=== PATIENT | female | born 1985 | race Caucasian/White ===

== ENCOUNTER 2017-02-18 21:20 | Emergency (ER) | payer BC ==
[2017-02-18] MEDS ORDERED: Morphine INJ* 4 MG/ML 1 ML SYRINGE IV ONE (22:01)
[2017-02-18] MEDS ORDERED: NS 0.9% 1000 ML* 1,000 ML IV ONE (22:01)
[2017-02-18] MEDS ORDERED: Ondansetron INJ* 2 MG/ML VIAL IV ONE (22:01)
[2017-02-18 22:26] LABS: Hematocrit 39 % (35-47); Hemoglobin 13.2 g/dl (12.0-16.0); Mean Corpuscular HGB Conc 34 g/dl (31-36); Mean Corpuscular Hemoglobin 29 pg (27-31); Mean Corpuscular Volume 88 fL (80-97); Mean Platelet Volume 9 um3 (7.4-10.4); Red Cell Distribution Width 13 % (10.5-15); White Blood Count 6.6 10^3/ul (3.5-10.8)
[2017-02-18 22:41] LABS: ALT 12 U/L (7-52); AST 14 U/L (13-39); Albumin 3.8 g/dL (3.2-5.2); Alkaline Phosphatase 42 U/L (34-104); Anion Gap 7 mmol/L (2-11); BUN/Creatinine Ratio 24.3 (8-20); Blood Urea Nitrogen 18 mg/dL (6-24); CO2 Carbon Dioxide 24 mmol/L (22-32); Calcium 8.3 mg/dL (8.6-10.3); Chloride 106 mmol/L (101-111); EGFR African American 119.3 (>60); EGFR Non-African American 92.8 (>60); Globulin 2.4 g/dL (2-4); Glucose 123 mg/dL (70-100); Lipase 20 U/L (11.0-82.0); Potassium 3.3 mmol/L (3.5-5.0); Sodium 137 mmol/L (133-145); Total Protein 6.2 g/dL (6.4-8.9)
[2017-02-18 23:19] LABS: Urine Bacteria Absent (Absent); Urine Bilirubin Negative (Negative); Urine Glucose Negative (Negative); Urine Nitrite Negative (Negative)
[2017-02-18] MEDS ORDERED: Iohexol 300* (CONTRAST) 10 ML SDV IV ONE (23:36)
[2017-02-18] MEDS ORDERED: HYDROmorphone* 1 MG/ML 1 ML SYR IV SLOW PU ONE (23:57)
[2017-02-19] MEDS ORDERED: Potassium Chlor TAB* 20 MEQ TAB.ER PO ONE (01:58)
[2017-02-19] MEDS ORDERED: oxyCODONE/Acetamin 5/325 MG* TAB PO ONE (02:03)
[2017-02-19] MEDS ORDERED: Omeprazole CAP* 20 MG PO ONE (02:04)
[2017-02-19] MEDS ORDERED: Ondansetron INJ* 2 MG/ML VIAL IV ONE (02:46)
[2017-02-19] MEDS ORDERED: Ondansetron INJ* 2 MG/ML VIAL ONE (02:47)
[2017-02-19 03:16] VITALS: BP 113/74
--- NOTE | 2017-02-19 04:51 | ED ---
Esther Angel Rebecca, scribed for Dereje Santos on 02/18/17 at 2204 . Syncope/Near Syncope - HPI Summary HPI Summary: Pt is a 31 y/o F BIBA who presents to ED s/p 2 syncopal episodes. Pt reports syncopal episodes occurred at approximately 2000 tonight after onset of abdominal pain. Positive LOC. Sx aggravated by nothing, alleviated by spontaneous resolution. Abdominal pain began at 1999, is located in the lower abdomen and is currently moderate, ranked 6/10. Additionally c/o nausea, citing one episode of nearly vomiting. Denies V/D. Pt reports no chance of . - History Of Current Complaint Chief Complaint: EDSyncope Time Seen by Provider: 02/18/17 21:38 Hx Obtained From: Patient Onset/Duration: Resolved Context: Loss Of Consciousness Activity At Onset: Other - Abdominal pain had recently began Aggravating Factor(s): Nothing Alleviating Factor(s): Spontaneous Resolution Associated Signs And Symptoms: Other - Abdominal pain and nausea - Allergies/Home Medications Allergies/Adverse Reactions: Allergies Allergy/AdvReac Type Severity Reaction Status Date / Time Amoxicillin Allergy Unknown Unknown Verified 02/18/17 21:44 Reaction Details Erythromycin Allergy Unknown Unknown Verified 02/18/17 21:44 Reaction Details Penicillins [PCN] Allergy Unknown Unknown Verified 02/18/17 21:44 Reaction Details Sulfa Antibiotics Allergy Unknown Unknown Verified 02/18/17 21:44 Reaction Details Sulfamethoxazole Allergy Unknown Unknown Verified 02/18/17 21:44 w/Trimethoprim Reaction [From Bactrim] Details PMH/Surg Hx/FS Hx/Imm Hx History: Denies: Hx Kidney Stones Musculoskeletal History: Denies: Hx Scoliosis EENT History: Reports: Hx Seasonal Allergies Infectious Disease History: No Infectious Disease History: Denies: Traveled Outside the [place] in Last 30 Days - Family History Known Family History: Positive: Cardiac Disease, Hypertension, Diabetes - Social History Alcohol Use: Rare Substance Use Type: Reports: None Smoking Status (MU): Never Smoked Tobacco Review of Systems Positive: Abdominal Pain - Lower, Nausea. Negative: Vomiting, Diarrhea Positive: Syncope - S/p 2 syncopal episodes with positive LOC All Other Systems Reviewed And Are Negative: Yes Physical Exam - Summary Physical Exam Summary: Appearance: Well appearing, no pain distress Skin: warm, dry, reflects adequate perfusion Head/face: normal Eyes: EOMI, CARLOS ENT: normal Neck: supple, nontender Respiratory: CTA, breath sounds present Cardiovascular: RRR, pulses symmetrical Abdomen: tenderness in the RLQ and LLQ, soft Bowel: present Musculoskeletal: normal, strength/ROM intact Neuro: normal, sensory motor intact, A&Ox3 Triage Information Reviewed: Yes Vital Signs On Initial Exam: Initial Vitals Temp Pulse Resp BP Pulse Ox 98.3 F 77 17 133/88 100 02/18/17 21:42 02/18/17 21:42 02/18/17 21:42 02/18/17 21:42 02/18/17 21:42 Vital Signs Reviewed: Yes Diagnostics - Vital Signs Vital Signs Temp Pulse Resp BP Pulse Ox 02/18/17 21:42 98.3 F 77 17 133/88 100 - Laboratory Result Diagrams: 02/18/17 22:18 02/18/17 22:18 Lab Statement: Any lab studies that have been ordered have been reviewed, and results considered in the medical decision making process. - CT CT Abd/Pel CT Interpretation: Positive (See Comments) - No gallstones. No evidence of renal calculi or obstructive uropathy. Normal appendix. Bowel wall thickening involving the distal transverse colon, splenic flexure, descending colon, and sigmoid colon that is suggestive of colitis. Clinical correlation is advised. No evience of intestinal obstruction, perforation, free fluid, or an intra- abdominal or pelvic abscess. ED physician reviewed this radiology report and agrees. CT Interpretation Completed By: Radiologist - Ultrasound No standard instances Ultrasound Interpretation: No Acute Changes - Abdomen US: Normal exam. ED physician reviewed this radiology report and agrees. Ultrasound Interpretation Completed By: Radiologist - EKG 2159 Cardiac Rate: NL - 76 bpm EKG Rhythm: Sinus Rhythm EKG Interpretation: No acute changes Re-Evaluation - Re-Evaluation First Eval Re-Evaluation Time: 01:36 Comment: Discussed CT results. Second Eval Re-Evaluation Time: 02:02 Comment: Discussed results and D/C plan with the pt. Course/Dx Assessment/Plan: Pt is a 31 y/o F BIBA who presents to ED s/p 2 syncopal episodes. Pt reports syncopal episodes occurred at approximately 2000 tonight after onset of abdominal pain. Positive LOC. Sx aggravated by nothing, alleviated by spontaneous resolution. Abdominal pain began at 2000, is located in the lower abdomen and is currently moderate, ranked 6/10. Additionally c/o nausea, citing one episode of nearly vomiting. Denies V/D. Pt reports no chance of . CT Abd/Pel reveals "No gallstones. No evidence of renal calculi or obstructive uropathy. Normal appendix. Bowel wall thickening involving the distal transverse colon, splenic flexure, descending colon, and sigmoid colon that is suggestive of colitis. Clinical correlation is advised. No evience of intestinal obstruction, perforation, free fluid, or an intra-abdominal or pelvic abscess." EKG is sinus rhythm with no acute changes. Abdomen US reveals no acute findings. In the ED course, pt was administered Dilaudid, Morphine, Potassium Chloride, Zofran and Percocet. She will be D/C to home with Dx of syncope, abdominal pain and colitis with Rx for Protonix and Percocet and a follow up with GI. She understands and agrees. Elevated BP noted and advised to f/u with PCP. - Diagnoses Provider Diagnoses: Colitis, Abdominal pain, Syncope Discharge - Discharge Plan Condition: Stable Disposition: HOME Prescriptions: Pantoprazole TAB (NF) [Protonix TAB (NF)] 40 mg PO DAILY #30 tab Pantoprazole TAB (NF) [Protonix TAB (NF)] 40 mg PO DAILY #30 tab oxyCODONE/Acetamin 5/325 MG* [Percocet 5/325 TAB*] 1 tab PO Q8H PRN #15 tab MDD 3 PRN Reason: Pain Patient Education Materials: Colitis (ED), Acute Abdominal Pain (ED), Syncope ( ED) Referrals: James Palmer MD [Medical Doctor] - 3 Days The documentation as recorded by the Esther sorto Rebecca accurately reflects the service I personally performed and the decisions made by , Dereje Santos.
--- NOTE | 2017-02-19 07:44 | RAD ---
INDICATION: Right upper quadrant pain. COMPARISON: Comparison is made with a CT of the abdomen and pelvis of the same date. TECHNIQUE: Multiple real-time images of the right upper quadrant were obtained. FINDINGS: The gallbladder appear normal. No gallbladder wall thickening or pericholecystic fluid is present. No intra or extrahepatic ductal distention is present. The common bile duct measured 0.3 cm in diameter. The liver is normal in size without significant focal abnormality. The pancreas is partially obscured by overlying bowel gas. The right kidney is normal in size without evidence for hydronephrosis. IMPRESSION: NEGATIVE EXAM.
--- NOTE | 2017-02-19 07:58 | RAD ---
INDICATION: Abdominal pain. COMPARISON: Comparison is made with a right upper quadrant ultrasound of the same date and a CT of the abdomen and pelvis from May 22, 2003. TECHNIQUE: A CT scan of the abdomen and pelvis was performed with intravenous and without oral contrast following intravenous injection of 91 ml of Omnipaque 300 nonionic contrast. Contiguous axial sections were obtained from the lung bases through the symphysis pubis. Images were reconstructed in the coronal and sagittal planes. FINDINGS: The lung bases are clear. No pleural effusion is present. The liver and spleen are within normal limits in size without significant focal abnormality. No calcified gallstones are seen. The pancreas appears to be within normal limits in size. The kidneys and adrenal glands are normal in size. No hydronephrosis is seen. No significant focal renal abnormality is seen. The aorta is normal in caliber and demonstrates homogeneous contrast opacification. No significant enlarged retroperitoneal lymph nodes are seen. The stomach is distended with food debris. The small bowel and colon are nondistended. The appendix is within normal limits. There is suggestion of mild bowel wall thickening in the distal transverse and descending colon versus normal variation. There is no evidence for diverticulitis. The uterus is anteverted and normal in size. No free intraperitoneal air or fluid is seen. No significant focal osseous abnormality is seen. IMPRESSION: THERE IS SUGGESTION OF MILD BOWEL WALL THICKENING IN THE DISTAL TRANSVERSE AND DESCENDING COLON POSSIBLY INDICATING COLITIS VERSUS NORMAL VARIATION, RECOMMEND CLINICAL CORRELATION.
== END 2017-02-19 03:16 | disposition home or self-care (01) ==
LOC: ED 21:20
DX: R55 Syncope and collapse (principal); K52.9 Noninfective gastroenteritis and colitis, unspecified; R10.9 Unspecified abdominal pain
CPT/HCPCS: 36415; 74177; 76705; 80053; 81003; 81015; 83690; 84484; 84702; 85025; 85610; 85730; 93005; 96374; 96375; 99284; A9270-GY; J1170; J2270; J2405; Q9967

== ENCOUNTER 2017-06-26 17:39 | Emergency (ER) | payer BC ==
[2017-06-26 17:57] VITALS: BP 138/99
--- NOTE | 2017-06-26 19:06 | UC ---
Skin Complaint HPI - HPI Summary HPI Summary: 31 yo WF c/o dog bite by a neighbor's mike mix on her left upper thigh a few hrs ago while walking her dog. Last tetanus was about 2 years ago. The dog was Not on a leash but presumed to be vaccinated as the neighbor had it for many years.. Denies f/c - History of Current Complaint Chief Complaint: UCBiteInjury Time Seen by Provider: 06/26/17 18:54 Stated Complaint: DOG BITE Hx Obtained From: Patient Hx Last Menstrual Period: 2 weeks ago Onset/Duration: Sudden Onset Skin Exposure Onset/Duration: Hours Ago Onset Severity: Moderate Aggravating Factor(s): Nothing Alleviating Factor(s): Nothing - Allergy/Home Medications Allergies/Adverse Reactions: Allergies Allergy/AdvReac Type Severity Reaction Status Date / Time Amoxicillin Allergy Unknown Unknown Verified 06/26/17 17:56 Reaction Details Erythromycin Allergy Unknown Unknown Verified 06/26/17 17:56 Reaction Details Penicillins [PCN] Allergy Unknown Unknown Verified 06/26/17 17:56 Reaction Details Sulfa Antibiotics Allergy Unknown Unknown Verified 06/26/17 17:56 Reaction Details Sulfamethoxazole Allergy Unknown Unknown Verified 06/26/17 17:56 w/Trimethoprim Reaction [From Bactrim] Details Home Medications: Home Medications Ciprofloxacin-Ciprofloxacin Hc [Ciprofloxacin ER 500 mg] 500 mg PO BID 06/26/17 [History Confirmed 06/26/17] Dicyclomine CAP* [Bentyl CAP*] 20 mg PO BID PRN 06/26/17 [History Confirmed 09/08] Review of Systems Constitutional: Negative Skin: Other - Dog bite on on right upper thigh Eyes: Negative ENT: Negative Respiratory: Negative Cardiovascular: Negative Gastrointestinal: Negative Genitourinary: Negative Motor: Negative Neurovascular: Negative Musculoskeletal: Negative Neurological: Negative Psychological: Negative All Other Systems Reviewed And Are Negative: Yes PMH/Surg Hx/FS Hx/Imm Hx - Surgical History Surgical History: Yes Surgery Procedure, Year, and Place: WISDOM TEETH - Family History Known Family History: Positive: Cardiac Disease, Hypertension, Diabetes - Social History Alcohol Use: Occasionally Substance Use Type: None Smoking Status (MU): Never Smoked Tobacco - Immunization History Most Recent Influenza Vaccination: UTD Most Recent Tetanus Shot: UTD Physical Exam Triage Information Reviewed: Yes Appearance: Well-Appearing Vital Signs: Initial Vital Signs Temp 37.2 C 06/26/17 17:48 Pulse 97 06/26/17 17:48 Resp 20 06/26/17 17:48 BP 138/99 06/26/17 17:48 Pulse Ox 99 06/26/17 17:48 Eye Exam: Normal ENT Exam: Normal ENT: Positive: Normal ENT inspection Dental Exam: Normal Neck exam: Normal Neck: Positive: Supple Respiratory Exam: Normal Cardiovascular Exam: Normal Cardiovascular: Positive: RRR Abdominal Exam: Normal Musculoskeletal Exam: Normal Neurological Exam: Normal Psychological Exam: Normal Skin Exam: Normal Skin: Positive: significant lesion(s) - right lateral anterior thigh puncture wound in slight U shape length 2cm, coagulated blood w/o drainage Course/Dx - Course Course Of Treatment: pt is already taking Cipro 500 BID x 10d for IBS so advised to continue that abx as pt is allergic to too many classes of abx including PCN - Diagnoses Provider Diagnoses: Dog bite Discharge - Discharge Plan Condition: Stable Disposition: HOME Patient Education Materials: Animal Bite (ED) Referrals: Eros Joel MD [Primary Care Provider] -
== END 2017-06-26 19:19 | disposition home or self-care (01) ==
LOC: UCEAST 17:39
DX: S71.152A Open bite, left thigh, initial encounter (principal); W54.0XXA Bitten by dog, initial encounter; Y93.K1 Activity, walking an animal; Y92.9 Unspecified place or not applicable; Z72.89 Other problems related to lifestyle
CPT/HCPCS: 99211; G0463